=== PATIENT | female | born 1980 | race Caucasian/White ===

== ENCOUNTER → 2023-02-06 | Outpatient (CLI) | payer SELFPAY ==
[2023-02-10 22:07] LABS: HPV APTIMA, High Risk Negative (Negative)
== END | disposition home or self-care (01) ==
PROVIDERS: Referring Provider Advanced Practice Midwife; Visit Provider Advanced Practice Midwife
DX: Z12.4 Encounter for screening for malignant neoplasm of cervix (principal)
CPT/HCPCS: 87070; 87205; 87624; 88175; G0145

== ENCOUNTER → 2023-04-18 | Outpatient (CLI) | payer SELFPAY ==
[2023-04-18 11:40] LABS: Hemoglobin A1c 5.2 % (3.8-5.6)
== END | disposition home or self-care (01) ==
PROVIDERS: Referring Provider Advanced Practice Midwife; Visit Provider Advanced Practice Midwife
DX: N89.8 Other specified noninflammatory disorders of vagina (principal); B37.31 Acute candidiasis of vulva and vagina
CPT/HCPCS: 36415; 83036; 87070; 87205